=== PATIENT | male | born 1990 | race Caucasian/White ===

== ENCOUNTER 2017-09-06 11:34 | Emergency (ER) | payer SELFPAY ==
[~2017-09-06] VITALS: Ht 182.9 cm; Wt 79.4 kg
[2017-09-06 11:50] VITALS: BP 123/87
--- NOTE | 2017-09-06 12:18 | Emergency Room Report ---
History of Present Illness General Chief Complaint: Chest Pain Source: Patient Present Illness HPI This patient states that he was pulling a T shirt over his head to put it on. He states that as he was pulling it over, he twisted his neck to the side and felt a pop in his neck. He states that since that time he has had pain in the upper back and left anterior chest. He states that the pain is worse with movement of his left shoulder and arm. He also has some pain in the upper back when he turns his head. He denies weakness. He denies tingling or numbness. He denies fever or chills. He denies nausea or vomiting. He states that he has a slight shortness of breath. He denies cough or congestion. He has no other complaints. Allergies: Uncoded Allergies: ASPARTAINE (Allergy, Unknown, 09/06/17) Patient History Past Medical History: other - Resting tremor Social History: Reports: alcohol use; Denies: smoking, drug use Reviewed Nursing Documentation: PMH: Agreed; PSxH: Agreed Nursing Documentation-PMH Past Medical History: No Stated History Review of Systems All Other Systems: negative except mentioned in HPI Physical Exam Vital Signs Date Time Temp Pulse Resp B/P (MAP) Pulse Ox O2 Delivery O2 Flow Rate FiO2 09/06/17 11:46 67 14 123/87 100 Room Air Sp02 EP Interpretation: reviewed, normal General Appearance: no apparent distress, alert, GCS 15, non-toxic Head: normocephalic, atraumatic Eyes: bilateral eye normal inspection, bilateral eye PERRL ENT: hearing grossly normal, normal pharynx, no angioedema, normal voice Neck: full range of motion, supple/symm/no masses Respiratory: lungs clear, normal breath sounds, no respiratory distress, no retraction, no accessory muscle use, speaking full sentences, other - TTP on the L. anterior chest wall in the pectoralis m. Rasing the L. arm also reproduces the pain. Cardiovascular #1: regular rate, rhythm, no edema Gastrointestinal: normal bowel sounds, non tender, soft, non-distended, no guarding, no rebound Rectal: deferred Musculoskeletal: back normal, gait/station normal, normal range of motion, other - TTP along the musculature of the paraspinal m. of the upper thoracic spine and rhomboid. No bony tenderness. Neurologic: alert, oriented x3, responsive, motor strength/tone normal, sensory intact, speech normal Psychiatric: judgement/insight normal, memory normal, mood/affect normal, no suicidal/homicidal ideation Skin: normal color, no rash, warm/dry, well hydrated Medical Decision Making Diagnostic Impression: Primary Impression: Chest pain Additional Impressions: Muscle strain of chest wall Muscle strain of scapular region ER Course This patient has a clinical presentation consistent with muscle strain. There are no red flags on physical exam or history that would make me concerned for underlying fracture. However, I did do a chest x-ray on this patient for concern that he could have a spontaneous pneumothorax given that he complained of chest pain and some shortness of breath. He was well-appearing and I had a somewhat low suspicion for this, however, early small pneumothorax can present like this. Chest x-ray showed showed no acute findings and no e/o PTX. The patient has pain with range of motion and has tenderness to palpation along the muscle. There is no evidence of compartment syndrome. There is no neurologic deficit. The patient was instructed on supportive home measures. No emergency medical condition was identified. The patient was given return precautions and followup instructions. Chest X-Ray Diagnostic Results Chest X-Ray Diagnostic Results : Chest X-Ray Ordered: Yes # of Views/Limited/Complete: 1 View Indication: Chest Pain EP Interpretation: Yes Interpretation: no consolidation, no effusion, no pneumothorax, no acute cardiopulmonary disease Impression: No acute disease Electronically Signed by: Maureen Last Vital Signs Date Time Temp Pulse Resp B/P (MAP) Pulse Ox O2 Delivery O2 Flow Rate FiO2 09/06/17 11:50 67 14 123/87 100 Room Air Status: improved Disposition: HOME, SELF-CARE Condition: Improved CRICKET SMALLWOOD D.O. Sep 06, 2017 12:18
--- NOTE | 2017-09-06 13:06 | Diagnostic Imaging Report ---
Indication: Dyspnea Comparison: None A single view chest radiograph was obtained. Findings: Cardiomediastinal appearance is within normal limits for age. Pulmonary vascularity is appropriate. The diaphragmatic contour is smooth and costophrenic angles are sharp. No pleural effusions are identified. The bones are unremarkable. Impression: No acute findings
[2017-09-06 13:09] VITALS: BP 111/82
--- NOTE | 2017-09-10 14:21 | Cardiology Report ---
APPROVED REPORT EKG Measurement Heart [id number] IN [id number] Normal sinus rhythm Normal ECG
== END 2017-09-06 13:15 | disposition home or self-care (01) ==
LOC: EMR 12:42
DX: S29.011A Strain of muscle and tendon of front wall of thorax, initial encounter (principal); X50.9XXA Other and unspecified overexertion or strenuous movements or postures, initial encounter; Y92.9 Unspecified place or not applicable; Z88.8 Allergy status to other drugs, medicaments and biological substances
CPT/HCPCS: 71045; 93005; 99283